=== PATIENT | male | born 1960 | race Caucasian/White ===

== ENCOUNTER 2020-08-18 07:39 | Emergency (ER) | payer OTHER ==
--- NOTE | 2020-08-18 08:37 | RAD ---
RADIOGRAPH LEFT RIBS 4 VIEWS: 08/18/2020 attention chante in billing: This is entered as chest x-ray with ribs. However, none of the images in clude the entire chest. HISTORY: 59-year-old male with acute, traumatic left rib pain after fall FINDINGS: There is a minimally displaced acute fracture of the anterolateral aspect of the left seventh rib, vi sible only certain on oblique images. There are multiple old, healed posterior lateral rib fracture deformities, including fifth and sixth ribs. No left-sided pneumothorax. No left-sided consolidation. No cardiomegaly. Left lateral costophrenic angle is not effaced. IMPRESSION: Acute, traumatic, minimally displaced fracture of left seventh rib.
== END 2020-08-18 08:50 | disposition home or self-care (01) ==
LOC: NAV ERS 07:39
DX: S22.32XA Fracture of one rib, left side, initial encounter for closed fracture (principal); E78.5 Hyperlipidemia, unspecified; E78.00 Pure hypercholesterolemia, unspecified; Z79.899 Other long term (current) drug therapy; W19.XXXA Unspecified fall, initial encounter